=== PATIENT | female | born 1990 ===

== ENCOUNTER → 2023-09-30 | Emergency (ER) | payer OTHER ==
[~2023-09-30] VITALS: Ht 157.5 cm; Wt 68.0 kg
[2023-09-30 17:24] LABS: HEMATOCRIT 35.1 % (36.0-45.00); MEAN CELL VOLUME 81.1 fL (80.00-100.00); MEAN CORPUSCULAR HEMOGLOBIN 27.7 pg (27.00-32.0); MEAN CORPUSCULAR HGB CONC 34.2 g/dl (32.0-36.0); PLATELET COUNT 244 K/uL (150-450); RED BLOOD COUNT 4.33 M/uL (4.00-6.00); RED CELL DISTRIBUTION WIDTH 13.3 % (11.5-14.5)
[2023-09-30 17:32] LABS: CALCIUM 8.3 mg/dL (8.5-10.1); CREATININE SERUM 0.5 mg/dL (0.55-1.02); GFR 142.09
[2023-09-30 17:43] LABS: POTASSIUM 2.99 mEq/L (3.5-5.1)
[2023-09-30 18:22] LABS: PH,URINE 6.5 (5.0-8.0); URINE APPEARANCE Clear; URINE BILIRRUBIN Negative (NEGATIVE); URINE BLOOD Moderate; URINE COLOR Yellow; URINE GLUCOSE Negative (NEGATIVE); URINE LEUKOCYTE Small; URINE NITRATE Negative; URINE PROTEIN Negative (NEGATIVE)
[2023-09-30 18:26] LABS: URINE BACTERIA 1610.2 uL (0.0-1933); URINE EPITHELIAL CELLS 36.9 uL (0.0-38.8); URINE RBC 4.4 uL (0.0-20.8); URINE WBC 27.3 uL (0.0-23.2)
== END | disposition home or self-care (01) ==
LOC: ER 15:21
PROVIDERS: Emergency Medicine
DX: A08.8 Other specified intestinal infections (principal); R10.9 Unspecified abdominal pain

== ENCOUNTER → 2024-09-28 09:48 | Outpatient (CLI) | payer OTHER | END | disposition home or self-care (01) | LOC: EKG 09:48 | DX: Z13.6 Encounter for screening for cardiovascular disorders (principal) ==